=== PATIENT | female | born 1985 ===

== ENCOUNTER 2017-07-04 20:07 | Inpatient (IN) | payer OTHER ==
[2017-07-04 20:12] VITALS: BMI 26.5
[2017-07-04] MEDS: Lactated Ringer's 1,000 ML IV SCH ×3 (20:25→22:03)
[2017-07-04 20:51] LABS: HEMOGLOBIN 11.5 g/dL (12.0-16.0); MEAN CORPUSCULAR HEMOGLOBIN 29.6 pg (27.0-31.0); MEAN CORPUSCULAR HGB CONC 33.3 g/dL (33.0-37.0); RBC 3.87 Mil/uL (3.80-5.20)
[2017-07-04] MEDS ORDERED: Bupivacaine HCl 0.25% PF (10 ml) Inj ONE (21:12)
[2017-07-04] MEDS ORDERED: Fentanyl/Bupivacaine HCl 250 ML EPI ONE (21:12)
--- NOTE | 2017-07-05 03:46 | OBHP ---
Datetime: 07/04/2017 21:44 IP Adm Impression: Term, intrauterine IP Admit Plan: Admit to unit; Initiate labor protocol Admit Comment, IP Provider: Pt is a 32 y/o female with IUP 39.5wks (JOHAN 07/06) presenting to [facility] with complaints f ctx starting at 5pm today and rlease of scant mucuousy discharge at 5:30pm. Repor ts ctx are getting worse and currently occuring q 3-4min. Denies vb. +FM OBHx: [place], PNC records reviewed, GBS -, no third trimester HIV and RPR. Otherwise unremarkable OBHx: 1 prior , 2017, FT PMHX: denies SurgHx: denies Meds: PNV Allergies: Penicillin (rash) Social: Habits x3 negative Vitals: T. 98.2, 126/82, HR 109, O2sat 100% on rm air General: Appears comfortable Cardio: RRR, no murmurs Pulm: CTABL Abdomen: Gravid, NT Cervix: 3cm, 70-80%, posterior cervix, 0 station Extr: wnl Limited bedside sono: cephalic presentaion A: IUP 39.5 wks, 3cm dilated, acutely distressed asking for epidural P: Admit to L_D. CBC, Type and screen. Monitor for progression of labor. HIV rapid, and RPR. Anest hesiology consultated for epidural. On Reassessment, 1 hr later, pt still distressed, cervical exam 3-4 cm, 90% effacted. Epidural rec eived. Discussed case with Dr. Marcelo Foreman PGY1 ob attending addendum: pt seen _ examined by me. agree w/ above assessment and plan. EGA AdmitDate IP: 39.5 Vital Signs Provider: Reviewed; Within Normal Limits IP Chief Complaint: Uterine contractions Dilatation, Provider: 3 Effacement, Provider: 70 Station, Provider: 0 Datetime: 07/04/2017 21:15 Pelvic Type - PN: Adequate Extremities - PN: Normal Abdomen - PN: Normal Heart - PN: Normal Neurologic - PN: Normal HEENT - PN: Normal General - PN: Normal NICHD Variability Prov Fetus A: Moderate 6-25bpm NICHD Accel Fetus A IP Provider: 15X15 FHR Category Provider Fetus A: Category I Genitourinary Exam: Normal
--- NOTE | 2017-07-05 03:47 | OBADHP ---
Datetime: 07/04/2017 21:44 EGA AdmitDate IP: 39.5 Datetime: 07/04/2017 21:15 Presentation-Admit: Vertex FHR - Baseline A Provider: 130 Contraction Comments Provider: 3-4min NICHD Variability Prov Fetus A: Moderate 6-25bpm NICHD Accel Fetus A IP Provider: [id number] FHR Category Provider Fetus A: Category I NICHD Decel Fetus A IP Provider: None
[2017-07-05] MEDS: Lactated Ringer's 1,000 ML IV SCH (03:58)
[2017-07-05] MEDS ORDERED: Oxycodone/Acetaminophen 5/325 mg Tab PO PRN ×3 (04:33→06:48)
[2017-07-05] MEDS ORDERED: Lactated Ringer's 1,000 ML IV SCH (06:48)
--- NOTE | 2017-07-05 15:14 | OBPPN ---
Datetime: 07/05/2017 14:44 PP Pain Prov: Within normal limits PP Nausea Prov: Denies PP Flatus Prov: Yes PP Breasts Prov: Not Done PP Heart Prov: Normal PP Lungs Prov: Normal PP Abdomen/Uterus Prov: Normal PP Lochia Prov: Not Done PP Vulva/Perineum Prov: Not Done PP CVA Tenderness Prov: Normal PP Extremities Prov: Normal PP Impression Prov: Normal progression PP Plan Prov: Continue present management PP Progress Note Prov: Patient doing well reports minimal lochia pain well-controlled voiding withou t difficulty Vital signs stable afebrile Uterus firm below the umbilicus Extremities no Homans Status post vaginal delivery day 0 Ambulate, regular diet, analgesias needed, anticipate discharge in a.m. Vital Signs Provider PP: Reviewed
[2017-07-05] MEDS ORDERED: Lansinoh for Breast Feeding Mothers TP ONE (20:29)
[2017-07-06 07:20] LABS: HEMOGLOBIN 9.5 g/dL (12.0-16.0); MEAN CELL VOLUME 88.7 fl (81.0-99.0); MEAN CORPUSCULAR HEMOGLOBIN 29.2 pg (27.0-31.0); RBC 3.24 Mil/uL (3.80-5.20); RED CELL DISTRIBUTION WIDTH 14.2 % (11.5-14.5); WHITE BLOOD COUNT 12.9 K/uL (4.8-10.8)
[2017-07-06] MEDS ORDERED: Benzocaine/Menthol SPRAY ONE (23:08)
--- NOTE | 2017-07-07 09:34 | OBPPN ---
Datetime: 07/07/2017 07:21 PP Pain Prov: Within normal limits PP Nausea Prov: Denies PP Flatus Prov: Yes PP Impression Prov: Normal progression PP Plan Prov: Continue present management; Discharge PP Progress Note Prov: PPD 2 S: 32 y/o female s/p on 07/05/17 evaluated on PPD2. Pt was seen and examined at bedside this AM. No overnight events. Pt reports mild abdominal pain, but well controlled with pain meds. Am bulating. Breast feeding (with formula supplementation) without difficulty. Lochia is similar to mens es volume. +Flatus/+BM. Denies fever/chills, diarrhea, nausea/vomiting, chest pain, dyspnea, and diz ziness. Pt declines circumcision for baby. O: VS: Stable overnight GEN: NAD Cardio: S1S2, no murmurs Lungs: clear breath sounds b/l, no wheezing Abdomen: BS+, appropriate tenderness to palpation. Uterus is firm and at the level of the umbilic us. EXT: No edema, calves nontender NEURO/PSYCH: AAOx3, no grossly focal deficits, preserved affect and mood. H/H (post ): 9.5/28.7 Assessment/Plan: 32 y/o female s/p on 07/05/17, doing well on PPD2. Pt remains afebrile , tolerating pain with medication. Tolerating diet. Anticipating d/c on 07/07/17 pending social work clearance. Continue with current management. Start oral iron today. Encourage and ambulating Ibuprofen 600mg q6 and Percocet 1 tablet 5-325mg prn for pain for pain Ferrous Sulfate 325 mg PO BID Claudia Pagan, PGY1 OB Hospitalist Addendum: Pt seen and examined by me. Agree w/ above. PPD 2 s/p , doing well. Pt to receive rx's motrin and ferrous sulfate. Discharge home today. (ES) Vital Signs Provider PP: Reviewed; Within Normal Limits Datetime: 07/06/2017 07:35 PP BM Prov: Yes
--- NOTE | 2017-07-07 09:34 | OBDCSUM ---
Datetime: 07/07/2017 07:33 Discharged to, Provider: Home Follow up at, Provider: MD [facility] Instr Activity: Normal activity; May be up to bathroom; May be up for meals; May Shower Disch Instr Diet: Regular Discharge Instructions, Provider: Routine instructions given Discharge Diagnosis, Provider: Term Delivered Discharge Time: 07/07/2017 09:33 Follow up in weeks, Provider: 4-6 weeks Disch Referrals: None Contraception discussed, Prov: Yes Disch Activity Restrictions: No sexual activity; Nothing in vagina - [place], tampons, douche Discharge Comment, Provider: Diagnosis: 32 y/o female s/p on 07/05/17 [place]: Male, 23[birth year], 5/6/8 Post Summary: Anemic, started on po Iron. Discharge Instructions: 1. Encourage 2. PNV 1 tab po daily 3. Ibuprofen 600mg 1 tab prn for mild-mod pain 4. Ferrous Sulfate 325mg BID 5. ER precautions: If excessive bleeding or fever without relief from medication, go to ED 6. F/U in 4-6 weeks Contraception after Delivery: Undecided
[2017-07-08 01:30] VITALS: BP 120/70; PULSE 73; RESP 18; TEMP 97.4; O2SAT 100
== END 2017-07-07 15:00 | disposition home or self-care (01) | DRG 373 ==
LOC: H.EROB2 20:07 → H.L&D 20:33 → H.OB/GYN 07-05 06:20
PROVIDERS: ADMIT Obstetrics & Gynecology; ATTEND Obstetrics & Gynecology
PROC: 4A1HXCZ Monitoring of Products of Conception, Cardiac Rate, External Approach (ICD-10-PCS; 2017-07-04)
PROC: 10E0XZZ Delivery of Products of Conception, External Approach (ICD-10-PCS; principal; 2017-07-05)
DX: O69.81X0 Labor and delivery complicated by cord around neck, without compression, not applicable or unspecified (principal); Z3A.39 39 weeks gestation of pregnancy; Z37.0 Single live birth